=== PATIENT | male | born 1995 | race American Indian/Alaskan Native ===

== ENCOUNTER 2021-07-29 05:53 | Emergency (ER) | payer SELFPAY ==
[2021-07-29 06:06] VITALS: BP 156/81
[2021-07-29 07:50] LABS: Bilirubin,Urine NEG (Negative); Blood,Urine NEG (Negative); Color,Urine Yellow (Yellow); Mucus,Urine FEW /HPF; Protein,Urine <15 mg/dL mg/dL (Negative); Urobilinogen,Urine < 2.0 mg/dL (<2.0); WBC,Urine < 1.0 /HPF (0.0-6.0)
[2021-07-29] MEDS ORDERED: LIDOCAINE-MPF (1%) 10 MG/1 ML VIAL 5 ML INFILTRATI ONE (08:05)
--- NOTE | 2021-07-29 08:06 | Emergency Department Report ---
ED Dysuria HPI - HPI Chief Complaint: Urogenital-Male Stated Complaint: STD CHECK Time Seen by Provider: 07/29/21 08:00 Duration: 2 Days Location of Discomfort: Other Severity: Mild Symptoms: Dysuria: Yes, Frequency: No, Suprapubic Pain: No, Flank Pain: No, Fever: No, Hematuria: No, Abdominal Pain: No, Previous UTI's: No Other History: Patient is a 26-year-old male that comes to the emergency room after having sex with a new female partner. He states 3 days later he developed a tingling. He endorses discharge. He denies any fever or chills. Denies testicular pain. Denies back pain. Denies abdominal pain. ED Review of Systems ROS: Stated complaint: STD CHECK Other details as noted in HPI Comment: All other systems reviewed and negative ED Past Medical Hx - Past Medical History Previous Medical History?: No - Surgical History Past Surgical History?: No - Family History Family history: no significant - Social History Smoking Status: Never Smoker Substance Use Type: Alcohol - Medications Home Medications: Home Medications Medication Instructions Recorded Confirmed Last Taken Type Azithromycin [Zithromax Z-ANN] 1,000 mg PO ONCE #4 07/29/21 Unknown Rx metroNIDAZOLE [Flagyl] 2,000 mg PO ONCE #4 tab 07/29/21 Unknown Rx Dysuria Exam - Exam General: Vital signs noted. No distress. Alert and acting appropriately. Exam: Yes Moist Mucous Membranes, No CVA Tenderness, No Abdominal Tenderness, No Rigidity or Guarding Labs: Lab Results 07/29/21 Range/Units Unknown Urine Color Yellow (Yellow) Urine Turbidity Clear (Clear) Urine pH 7.0 (5.0-7.0) Ur Specific [place] 1.021 (1.003-1.030) Urine Protein <15 mg/dl (Negative) mg/dL Urine Glucose (UA) Neg (Negative) mg/dL Urine Ketones Neg (Negative) mg/dL Urine Blood Neg (Negative) Urine Nitrite Neg (Negative) Urine Bilirubin Neg (Negative) Urine Urobilinogen < 2.0 (<2.0) mg/dL Ur Leukocyte Esterase Neg (Negative) Urine WBC (Auto) < 1.0 (0.0-6.0) /HPF Urine RBC (Auto) 1.0 (0.0-6.0) /HPF U Epithel Cells (Auto) < 1.0 (0-13.0) /HPF Urine Mucus Few /HPF ED Course Vital Signs 07/29/21 05:57 Pulse Rate 75 Blood Pressure 156/81 O2 Sat by Pulse 98 Oximetry ED Medical Decision Making - Medical Decision Making Patient treated empirically for his concerns for STD. Vital Signs 07/29/21 05:57 Pulse Rate 75 Blood Pressure 156/81 O2 Sat by Pulse 98 Oximetry He has been advised to practice safe sex. Pt d/c home with dc plan of care including diet, activity, meds, and follow up. He verbalizes understanding of the discharge plan of care - Differential Diagnosis Concern for STI Critical care attestation.: If time is entered above; I have spent that time in minutes in the direct care of this critically ill patient, excluding procedure time. ED Disposition Clinical Impression: Concern about STD in male without diagnosis Disposition: 01 HOME / SELF CARE / HOMELESS Is pt being admited?: No Does the pt Need Aspirin: No Condition: Stable Additional Instructions: MEDS GIVEN TODAY ALL AT ONE TIME SAFE SEX FOLLOW UP WITH PCP FOR ROUTINE TESTING Prescriptions: metroNIDAZOLE [Flagyl] 2,000 mg PO ONCE #4 tab Azithromycin [Zithromax Z-ANN] 1,000 mg PO ONCE #4 Referrals: JENNY ARROYO MD [Staff Physician] - 3-5 Days Time of Disposition: 08:09
== END 2021-07-29 08:50 | disposition home or self-care (01) ==
LOC: EDBD → ED 05:53
DX: Z20.2 Contact with and (suspected) exposure to infections with a predominantly sexual mode of transmission (principal); Z72.89 Other problems related to lifestyle; Z79.899 Other long term (current) drug therapy
CPT/HCPCS: 81001; 96372; 99283; J0696; J3490